=== PATIENT | female | born 1990 | race Caucasian/White ===

== ENCOUNTER 2022-01-07 22:01 | Emergency (ER) | payer BC, SELFPAY ==
[2022-01-07 22:22] VITALS: BP 104/58; PULSE 89; RESP 18; TEMP 36.4; O2SAT 99; BMI 21.0
--- NOTE | 2022-01-08 00:05 | ED_ITS ---
HPI - General Adult General Chief complaint: Headache/Migraine Stated complaint: Sinus infection, headache Time Seen by Provider: 01/07/22 23:24 Source: patient History of Present Illness HPI narrative: Patient is a 31-year-old woman who says that she had RSV about a week and a half ago. Those symptoms seem to be improving but over the past 5 days she has developed significant sinus congestion and pain in her teeth, maxillary sinuses and frontal sinuses. She has had a significant headache. She has not had a fever. She has been trying ibuprofen and Tylenol as well as phenylephrine and has not had a lot of success. She is wondering if she needs an antibiotic. General health is good. No allergies. Does not smoke. Related Data Home Medications Medication Instructions Recorded Confirmed No Known Home Medications 01/07/22 01/07/22 Allergies Allergy/AdvReac Type Severity Reaction Status Date / Time No Known Drug Allergies Allergy Verified 01/07/22 22:26 Review of Systems Status of ROS: Reports: 6 or more systems reviewed and unremarkable except as noted in History and below Exam Narrative: Exam Narrative: Vital signs as noted above. In general, an alert, well-appearing patient. Head: Normocephalic, atraumatic. Eyes: Pupils are equal reactive. Extraocular movements are full. Conjunctivae are normal. ENT: Mucous membranes are moist. Throat is normal. Neck: Supple without lymphadenopathy. Heart: Regular rate and rhythm. No murmur or rub. Lungs: Clear bilaterally. No increased work of breathing, crackles or wheezes. Affect: Normal. Skin: Warm and dry. Well perfused. Const: Vital Signs, click to edit/add: Vital Signs - 24 hr 01/07/22 22:22 Temperature 97.5 F L Pulse Rate [Right Pulse Oximeter] 89 Respiratory Rate 18 Blood Pressure [Ri ght Upper Arm] 104/58 L Pulse Oximetry 99 Oxygen Delivery Me thod Room Air Documenting provider has reviewed patient's vital signs: yes Course Course Hospital Course: Given the progression of her symptoms I think it is possible this may represent a superimposed bacterial sinusitis. I am prescribing Augmentin, I have recommended that she use pseudoephedrine rather than phenylephrine. Ibuprofen and Tylenol as needed for headache. She should be seen again for high fever, vomiting, or other worsening. Follow up with primary care if not improving over the next couple weeks. Discussed that this may represent still of viral process and that if she is not improving on the antibiotics it likely represents a viral illness rather than a failure of antibiotics. Vital Signs Vital signs: Initial Vital Signs Temperature 97.5 F L 01/07/22 22:22 Temperature Source Temporal Artery Scan 01/07/22 22:22 Pulse Rate 89 01/07/22 22:22 Pulse Rhythm 01/07/22 22:22 Pulse Strength 0+ Absent 01/07/22 22:22 Respiratory Rate 18 01/07/22 22:22 Blood Pressure 104/58 L 01/07/22 22:22 Blood Pressure Mean 73 01/07/22 22:22 Blood Pressure Position Sitting 01/07/22 22:22 Pulse Oximetry 99 01/07/22 22:22 Oxygen Delivery Method 01/07/22 22:22 Vital Signs Temperature 97.5 F L 01/07/22 22:22 Pulse Rate 89 01/07/22 22:22 Respiratory Rate 18 01/07/22 22:22 Blood Pressure 104/58 L 01/07/22 22:22 Pulse Oximetry 99 01/07/22 22:22 Oxygen Delivery Method 01/07/22 22:22 Temperature 97.5 F L 01/07/22 22:22 Pulse Rate 89 01/07/22 22:22 Respiratory Rate 18 01/07/22 22:22 Blood Pressure 104/58 L 01/07/22 22:22 Pulse Oximetry 99 01/07/22 22:22 Oxygen Delivery Method 01/07/22 22:22 Discharge Plan Discharge Clinical Impression: Sinusitis Patient Disposition: Home, Self-Care Condition: Stable Instructions: Sinusitis (ED) Additional Instructions: Prescribed. Ibuprofen and Tylenol as discussed. Return for worsening symptoms such as high fevers, vomiting, severe pain. Follow up with primary care if no improvement over the next couple of weeks. Prescriptions: No Action No Known Home Medications Stand Alone Forms: [place] [employer] Info Instructions
== END 2022-01-08 00:01 | disposition home or self-care (01) ==
LOC: ED 01-08 00:01
PROVIDERS: Emergency Provider Emergency Medicine
DX: J01.90 Acute sinusitis, unspecified (principal)
CPT/HCPCS: 99283